=== PATIENT | female | born 1940 | race African-American/Black ===

== ENCOUNTER 2020-04-23 12:31 | Emergency (ER) | payer BC, MEDICAID ==
[~2020-04-23] VITALS: Ht 157.5 cm; Wt 68.0 kg
[2020-04-23] MEDS ORDERED: SODIUM CHLORIDE 0.9% 1,000 ML IV ONE (14:34)
[2020-04-23] MEDS ORDERED: MORPHINE SULFATE 2 MG/ML CPJ (NOT FOR IM USE) IV ONE (14:45)
[2020-04-23] MEDS ORDERED: AMLO10TA80 PO (16:22)
[2020-04-23] MEDS ORDERED: LISI2.5T47 PO (16:22)
[2020-04-23] MEDS ORDERED: METO25TA6 PO (16:22)
[2020-04-23] MEDS ORDERED: LISPRO (16:22)
[2020-04-23] MEDS ORDERED: ACET-2708 PO (16:22)
[2020-04-23] MEDS ORDERED: INSULIN (16:22)
[2020-04-23] MEDS ORDERED: DICL100G31 TP (16:22)
[2020-04-23] MEDS ORDERED: ASPI-1497 PO (16:22)
[2020-04-23] MEDS ORDERED: [UNRECOGNIZED DRUG - CODE] PO (16:22)
[2020-04-23] MEDS ORDERED: ATOR40TA70 PO (16:22)
[2020-04-23] MEDS ORDERED: PANT40TA4 PO (16:22)
[2020-04-23 16:34] LABS: BASOPHILS % 0.6 % (0.0-2.0); EOSINOPHILS % 4.8 % (0.0-5.0); HEMATOCRIT. 36.6 % (36.0-48.0); HEMOGLOBIN. 11.9 g/dL (12.0-16.0); MEAN CORPUSCULAR HEMOGLOBIN 29.6 pg (28.0-32.0); MEAN CORPUSCULAR VOLUME 90.9 fL (81.0-99.0); MEAN PLATELET VOLUME 10.8 fl (7.4-10.4); MONOCYTES % 6.1 % (2.0-8.0); NEUTROPHILS % 70.5 % (40.0-76.0); PLATELET 289 x1000/uL (130-400); RED BLOOD CELL COUNT 4.03 mill/uL (4.2-5.4); RED CELL DISTRIBUTION WIDTH 15.2 % (11.6-14.6)
[2020-04-23 16:40] LABS: CHLORIDE 101 mEq/L (98-107)
[2020-04-23 16:46] LABS: PARTIAL THROMBOPLASTIN TIME 28.9 sec (23.4-31.0); PROTHROMBIN TIME 10.3 sec (9.6-11.0)
[2020-04-23 19:40] VITALS: BP 135/52
== END 2020-04-23 20:13 | disposition short-term general hospital (02) ==
LOC: ER 12:31
DX: S43.002A Unspecified subluxation of left shoulder joint, initial encounter (principal); E11.9 Type 2 diabetes mellitus without complications; I10 Essential (primary) hypertension; E78.00 Pure hypercholesterolemia, unspecified; Z86.73 Personal history of transient ischemic attack (TIA), and cerebral infarction without residual deficits; Z91.81 History of falling; Z79.82 Long term (current) use of aspirin; Z79.4 Long term (current) use of insulin; Z88.6 Allergy status to analgesic agent; X58.XXXA Exposure to other specified factors, initial encounter; Y93.89 Activity, other specified; Y92.018 Other place in single-family (private) house as the place of occurrence of the external cause
CPT/HCPCS: 36415; 70450; 71045; 73030; 73200; 80053; 83880; 84484; 85025; 85610; 85730; 86850; 86900; 86901; 93005; 96374; 99285; J2270; J7030; L3670